=== PATIENT | female | born 1985 | race Caucasian/White ===

== ENCOUNTER 2019-11-21 12:01 | Day surgery (SDC) | payer OTHER ==
[~2019-11-21] VITALS: Ht 175.3 cm; Wt 87.5 kg
[~2019-11-21 12:01] MED LIST: ALLE180T33 PO; BIOT2500 PO; CHEL100T4 PO; VITA200031 PO
[2019-11-21] MEDS ORDERED: NS 1,000 ML IV ONE (12:15)
--- NOTE | 2019-11-21 13:45 | ROOR ---
Patient Name: Amberly Canas Procedure Date: 11/21/2019 1:13 PM Date of : 1985 Age: 34 Room: [facility] Gender: Female Note Status: Finalized Procedure: Total Colonoscopy to Cecum + ileoscopy + Bx Indications: Exclusion of Crohn's disease of the colon, Follow-up of Crohn's disease of the colon, Disease activity assessment of Crohn's disease of the colon Providers: Jasper Cage MD Referring MD: MICHELLE MARTINEZ MD Requesting Provider: Medicines: Monitored Anesthesia Care Complications: No immediate complications. Procedure: Pre-Anesthesia Assessment: - The heart rate, respiratory rate, oxygen saturations, blood pressure, adequacy of pulmonary ventilation, and response to care were monitored throughout the procedure. The Colonoscope was introduced through the anus and advanced to the terminal ileum, with identification of the appendiceal orifice and IC valve. The colonoscopy was performed without difficulty. The patient tolerated the procedure well. The quality of the bowel preparation was excellent. Findings: The perianal and digital rectal examinations were normal. Non-bleeding internal hemorrhoids were found during retroflexion. The hemorrhoids were small and Grade I (internal hemorrhoids that do not prolapse). No other significant abnormalities were identified in a careful examination of the remainder of the colon. Background biopsies were taken for histology with a cold forceps from the cecum, ascending colon, transverse colon, descending colon and rectosigmoid colon. These biopsy specimens were sent to Pathology. The distal ileum contained a single (solitary) ulcer. The exam was otherwise without abnormality. Impression: - Non-bleeding internal hemorrhoids. - A single (solitary) ulcer in the distal ileum. - The examination was otherwise normal. - Background biopsies were taken from the cecum, ascending colon, transverse colon, descending colon and rectosigmoid colon. - The exam was otherwise normal to the cecum. Recommendation: - Patient has a contact number available for emergencies. The signs and symptoms of potential delayed complications were discussed with the patient. Return to normal activities tomorrow. Written discharge instructions were provided to the patient. - High fiber diet. - Discharge patient to home. - Continue present medications. - Await pathology results. - Telephone GI clinic for pathology results in 1 week. - Repeat colonoscopy in 3 years for surveillance. - Return to referring physician. - The findings and recommendations were discussed with the patient. Jasper Cage MD Jasper Cage MD 11/21/2019 1:45:18 PM Electronically signed by Jasper Cage MD Number of Addenda: 0 Note Initiated On: 11/21/2019 1:13 PM Estimated Blood Loss: Estimated blood loss: none.
[2019-11-21 14:00] VITALS: BP 132/73
== END 2019-11-21 14:30 | disposition home or self-care (01) ==
LOC: M OPP 12:01
PROVIDERS: ATTEND Internal Medicine Gastroenterology
DX: K50.10 Crohn's disease of large intestine without complications (principal); K63.3 Ulcer of intestine; K64.0 First degree hemorrhoids; Z88.0 Allergy status to penicillin; Z88.8 Allergy status to other drugs, medicaments and biological substances

== ENCOUNTER → 2021-05-14 | Outpatient (CLI) | payer OTHER ==
[~2021-05-14] MED LIST changes: +METHACHOLINE KIT (J7674) INH ONE
--- NOTE | 2021-05-14 14:45 | PFTRPT ---
Site: [facility], [address] [place], [address] ID: [id number] Name: ROSEMARY MENDOZA Visit Date: 05/14/2021 Second ID: [id number] Referring Doctor: Debbie Winslow Reviewing Doctor: Jam Ayala MD Administrative Court Justice: Jeovany DILLON RRT Age: 35 : 1985 Sex: Female Race: Height: 69.00 Inches Weight: 210.00 Lbs BSA: 2.11 Order IDs: [id number] Requested Test(s): <RESP-PFT.METH CHAL> Diagnosis: R06.02 puffs of albuterol for post bronchodilator. Review Status: Not Reviewed Pre-Bronch Post-Bronch Pred Actual %Pred Actual %Chng SPIROMETRY FVC (L) 4.37 4.65 106 4.51 -3 FEV1 (L) 3.58 3.64 101 3.46 -5 FEV1/FVC (%) 83 78 94 77 -2 FEF 25% (L/sec) 6.08 5.96 97 5.81 -2 FEF 50% (L/sec) 4.33 4.44 102 3.99 -10 FEF 75% (L/sec) 1.76 1.43 81 1.02 -29 FEF 25-75% (L/sec) 3.57 3.41 95 2.77 -18 FEF Max (L/sec) 7.81 5.96 76 6.24 4 FIVC (L) 4.62 4.78 3 FIF 50% (L/sec) 4.32 4.60 106 3.14 -31 FIF Max (L/sec) 4.61 3.74 -18 Expiratory Time (sec) 6.45 7.02 8 Back Extrap Vol (L) 0.16 0.11 -28 Time To FEFmax (sec) 0.188 0.096 -48
== END ==
LOC: M CARPUL 13:50
PROVIDERS: ATTEND Nurse Practitioner Adult Health
DX: R06.02 Shortness of breath (principal)
CPT/HCPCS: 94070; J7674

== ENCOUNTER → 2023-01-20 | Outpatient (CLI) | payer OTHER ==
[~2023-01-20] MED LIST changes: +E-Z-GAS II EFFERVESCENT PACKET (SODIUM BICARB./CITRIC ACID/SIMETHICONE) As Ordered ONE; +E-Z-HD 98% w/w 340GM SUSP BTL As Ordered ONE; +E-Z-PAQUE 96% w/w SUSP 176GM BTL As Ordered ONE; -METHACHOLINE KIT (J7674) INH ONE
== END ==
LOC: M RAD 09:17
PROVIDERS: ATTEND Internal Medicine Gastroenterology
DX: K50.80 Crohn's disease of both small and large intestine without complications (principal); K21.9 Gastro-esophageal reflux disease without esophagitis

== ENCOUNTER 2023-06-10 06:29 | Day surgery (SDC) | payer OTHER ==
[~2023-06-10] VITALS: Ht 175.3 cm; Wt 92.1 kg
[~2023-06-10 06:29] MED LIST changes: +B-12100021 IM; -E-Z-GAS II EFFERVESCENT PACKET (SODIUM BICARB./CITRIC ACID/SIMETHICONE) As Ordered ONE; -E-Z-HD 98% w/w 340GM SUSP BTL As Ordered ONE; -E-Z-PAQUE 96% w/w SUSP 176GM BTL As Ordered ONE; +NORT1TAB PO; +NS 1,000 ML IV ONE; +QVAR40AE12 INH
[2023-06-10] MEDS ORDERED: LIDOCAINE 2% 100MG/5ML SDV (FOR ANES.) As Ordered ONE (07:40)
[2023-06-10] MEDS ORDERED: propofoL 200 MG/20 ML VIAL As Ordered ONE ×3 (07:40→07:51)
[2023-06-10] MEDS ORDERED: fentaNYL 100 MCG/2 ML INJECTION As Ordered ONE (07:40)
[2023-06-10 08:06] VITALS: TEMP 97.6
[2023-06-10 08:27] VITALS: BP 127/73; O2SAT 98
== END 2023-06-10 08:29 | disposition home or self-care (01) ==
LOC: M OPP 06:29
PROVIDERS: ATTEND Internal Medicine Gastroenterology
DX: K64.0 First degree hemorrhoids (principal); K63.89 Other specified diseases of intestine; K50.90 Crohn's disease, unspecified, without complications; K22.89 Other specified disease of esophagus; Z79.1 Long term (current) use of non-steroidal anti-inflammatories (NSAID); Z88.1 Allergy status to other antibiotic agents; Z88.8 Allergy status to other drugs, medicaments and biological substances
CPT/HCPCS: 43239; 45380; 88305; J3010

== ENCOUNTER 2024-09-09 08:41 | Day surgery (SDC) | payer OTHER ==
[~2024-09-09] VITALS: Ht 30.5 cm; Wt 98.5 kg
[~2024-09-09 08:41] MED LIST changes: +LIDOCAINE 2% 100MG/5ML SDV (FOR ANES.) As Ordered ONE; -NS 1,000 ML IV ONE; +propofoL 200 MG/20 ML VIAL As Ordered ONE
[2024-09-09 10:46] VITALS: TEMP 99.3
[2024-09-09 11:03] VITALS: BP 115/58; O2SAT 99
== END 2024-09-09 11:14 | disposition home or self-care (01) ==
LOC: M OPP 08:41
PROVIDERS: ATTEND Surgery
DX: K62.89 Other specified diseases of anus and rectum (principal); K64.4 Residual hemorrhoidal skin tags; K62.5 Hemorrhage of anus and rectum; Z88.1 Allergy status to other antibiotic agents; Z88.8 Allergy status to other drugs, medicaments and biological substances; Z79.899 Other long term (current) drug therapy

== ENCOUNTER 2024-09-15 08:43 | Day surgery (SDC) | payer OTHER ==
[~2024-09-15] VITALS: Ht 175.3 cm; Wt 99.1 kg
[~2024-09-15 08:43] MED LIST changes: -LIDOCAINE 2% 100MG/5ML SDV (FOR ANES.) As Ordered ONE; -propofoL 200 MG/20 ML VIAL As Ordered ONE
[2024-09-15 09:16] LABS: HEMATOCRIT 42.1 % (36.0-47.0); HEMOGLOBIN 13.7 g/dl (12.0-15.5); MEAN CORPUSCULAR HEMOGLOBIN 29.3 pg (27.0-33.0); MEAN CORPUSCULAR HGB CONC 32.5 g/dl (32.0-36.5); PLATELET COUNT, AUTOMATED 225 10^3/uL (150-450); RED BLOOD COUNT 4.68 10^6/uL (4.00-5.40); WHITE BLOOD COUNT 8.2 10^3/uL (4.0-10.0)
[2024-09-15] MEDS ORDERED: LR 1,000 ML IV SCH ×2 (09:25→13:30)
[2024-09-15] MEDS ORDERED: LIDOCAINE 1% SDV 5ML VIAL SC PRN (09:25)
[2024-09-15] MEDS ORDERED: PROA1AER2 IN (09:49)
[2024-09-15] MEDS: SCOPOLAMINE 1MG TRANSDERMAL PATCH TOP ONE (09:54)
[2024-09-15] MEDS: ACETAMINOPHEN 500 MG TAB PO ONE (09:54)
[2024-09-15] MEDS ORDERED: ROCURONIUM BROMIDE 50MG/5ML VIAL As Ordered ONE (10:59)
[2024-09-15] MEDS ORDERED: SUGAMMADEX SODIUM 500 MG/5 ML VIAL As Ordered ONE (10:59)
[2024-09-15] MEDS ORDERED: LIDOCAINE 2% 100MG/5ML SDV (FOR ANES.) As Ordered ONE (10:59)
[2024-09-15] MEDS ORDERED: ONDANSETRON 4MG 2ML VIAL As Ordered ONE (10:59)
[2024-09-15] MEDS ORDERED: propofoL 200 MG/20 ML VIAL As Ordered ONE (10:59)
[2024-09-15] MEDS ORDERED: KETOROLAC 30 MG/ML 1ML VIAL As Ordered ONE (10:59)
[2024-09-15] MEDS ORDERED: MIDAZOLAM INJ 2MG/2ML VIAL As Ordered ONE (11:05)
[2024-09-15] MEDS ORDERED: fentaNYL 100 MCG/2 ML INJECTION As Ordered ONE (11:05)
[2024-09-15] MEDS ORDERED: fentaNYL 100 MCG/2 ML INJECTION IV PRN (13:30)
[2024-09-15] MEDS ORDERED: HYDROMORPHONE HCL 0.5 MG/ 0.5 ML SYRINGE IV PRN (13:30)
[2024-09-15] MEDS ORDERED: oxyCODONE 5MG TAB PO PRN (13:30)
[2024-09-15] MEDS ORDERED: ONDANSETRON 4MG 2ML VIAL IV PRN (13:30)
[2024-09-15 15:18] VITALS: BP 132/81; TEMP 97.8; O2SAT 97
== END 2024-09-15 15:23 | disposition home or self-care (01) ==
LOC: M SDC 08:43
PROVIDERS: ATTEND Student in an Organized Health Care Education/Training Program
DX: N80.122 Deep endometriosis of left ovary (principal); Z30.2 Encounter for sterilization; K21.9 Gastro-esophageal reflux disease without esophagitis; G43.909 Migraine, unspecified, not intractable, without status migrainosus; J45.909 Unspecified asthma, uncomplicated; Z79.51 Long term (current) use of inhaled steroids; Z79.899 Other long term (current) drug therapy; Z88.0 Allergy status to penicillin; Z88.8 Allergy status to other drugs, medicaments and biological substances; Z94.89 Other transplanted organ and tissue status
CPT/HCPCS: 36415; 58661; 81025; 85027; 86850; 86900; 86901; 88302; J0665; J1100; J1885; J2250; J2405; J3010